=== PATIENT | female | born 1980 | race Asian ===

== ENCOUNTER 2017-02-20 00:35 | Inpatient (IN) | payer SELFPAY ==
[~2017-02-20] VITALS: Ht 160 cm; Wt 67.1 kg
[2017-02-20] MEDS ORDERED: LACTATED RINGERS 1,000 ML IV SCH (01:12)
[2017-02-20] MEDS ORDERED: PROMETHAZINE 25 MG/ML VIAL IVP PRN (01:15)
[2017-02-20] MEDS ORDERED: OXYTOCIN 20 UNITS/LR PREMIX 1,000 ML IV PRN (01:15)
[2017-02-20] MEDS ORDERED: NALBUPHINE HYDROCHLORIDE 10 MG/ML VIAL IVP PRN (01:15)
[2017-02-20] MEDS ORDERED: AMPICILLIN 2,000 MG in NACL 0.9% MINI-BAG PLUS 100 ML IV SCH (01:15)
[2017-02-20] MEDS ORDERED: OXYTOCIN 10 UNITS/ML VIAL IM SCH (01:15)
[2017-02-20] MEDS ORDERED: AMPICILLIN 2,000 MG VIAL ONE (01:20)
[2017-02-20 02:08] LABS: BASOPHILS % (AUTO) 0.8 % (0.0-2.0); EOSINOPHILS # (AUTO) 0.2 K/uL (0-0.4); EOSINOPHILS % (AUTO) 2.5 % (0.0-4.0); HEMATOCRIT 34.6 % (36-48); HEMOGLOBIN 11.3 g/dL (12.0-16.0); LYMPHOCYTES # (AUTO) 1.1 K/uL (2.5-16.5); LYMPHOCYTES % (AUTO) 18.3 % (20.5-51.1); MEAN CORPUSCULAR HEMOGLOBIN 31 pg (27-31); MEAN CORPUSCULAR HGB CONC 33 g/dL (33-37); MEAN CORPUSCULAR VOLUME 96 fL (80-94); MONOCYTES # (AUTO) 0.4 K/uL (0.8-1.0); MONOCYTES % (AUTO) 6.7 % (1.7-9.3); NEUTROPHILS # (AUTO) 4.5 K/uL (1.8-7.7); NEUTROPHILS % (AUTO) 71.7 % (42.2-75.2); PLATELET COUNT (AUTO) 119 K/uL (140-450); RED BLOOD CELL COUNT(AUTO) 3.61 MIL/uL (4.20-5.40); RED CELL DISTRIBUTION WIDTH 13.1 % (11.6-13.7); WHITE BLOOD COUNT (AUTO) 6.2 K/uL (4.8-10.8)
[2017-02-20 02:09] LABS: APPEARANCE,URINE CLEAR (CLEAR); BILIRUBIN,URINE NEGATIVE (NEGATIVE); BLOOD, URINE 3+ (NEGATIVE); COLOR,URINE YELLOW (YELLOW); LEUKOCYTE ESTERASE ,URINE 3+ (NEGATIVE); NITRITE, URINE NEGATIVE (NEGATIVE); PROTEIN,URINE NEGATIVE (NEGATIVE); UGLUCOSE NEGATIVE (NEGATIVE); UROBILINOGEN,URINE 0.2 EU/dL (0.2 - 1)
[2017-02-20 02:21] LABS: RBC,URINE 0-5 (RARE) /HPF (0-5)
[2017-02-20 02:23] LABS: BACTERIA,URINE 1+ /HPF (None Seen); WBC,URINE 20-60 /HPF (0-5); YEAST,URINE Rare /HPF (None Seen)
[2017-02-20 02:28] LABS: HIV RAPID SCREEN NON-REACTIVE (NON REACTIV)
[2017-02-20 02:35] VITALS: BP 101/57
[2017-02-20] MEDS ORDERED: ROPIVACAINE 0.2%/NS PREMIX 250 ML EPI ONE (02:56)
[2017-02-20] MEDS ORDERED: AMPICILLIN 1,000 MG in NACL 0.9% MINI-BAG PLUS 50 ML IV SCH (05:00)
[2017-02-20] MEDS ORDERED: AMPICILLIN 1,000 MG VIAL ONE (05:34)
[2017-02-20] MEDS ORDERED: OXYTOCIN 20 UNITS/LR PREMIX 1,000 ML IV ONE (06:26)
[2017-02-20] MEDS ORDERED: OXYTOCIN 10 UNITS/ML VIAL ONE (09:11)
[2017-02-20] MEDS ORDERED: oxyCODONE/APAP 5/325 MG 1 TAB TAB PO PRN (14:40)
[2017-02-20] MEDS ORDERED: IBUPROFEN 800 MG TAB PO PRN (14:40)
[2017-02-20] MEDS ORDERED: TEMAZEPAM 15 MG CAP PO PRN (14:40)
[2017-02-20] MEDS ORDERED: HYDROcodone/APAP 5/325 MG 1 TAB TAB PO PRN (14:40)
[2017-02-20] MEDS ORDERED: BENZOCAINE/MENTHOL 20%-0.5% 60 GM CAN TP PRN (14:40)
[2017-02-20] MEDS ORDERED: WITCH HAZEL 40 PAD PACKAGE TP PRN (14:40)
[2017-02-20] MEDS ORDERED: METHYLERGONOVINE 0.2 MG/ML AMP IM PRN (14:40)
[2017-02-20] MEDS ORDERED: OXYTOCIN 10 UNITS/ML VIAL IM PRN (14:40)
[2017-02-20] MEDS ORDERED: oxyCODONE/APAP 5/325 MG 1 TAB TAB ONE ×2 (14:56→14:57)
[2017-02-20 19:16] LABS: RAPID PLASMA REAGIN NON-REACTIVE (Non Reactiv)
[2017-02-20] MEDS ORDERED: DOCUSATE SOD/SENNA 50/8.6 MG 1 TAB PO SCH (21:00)
[2017-02-21 05:51] LABS: HEMATOCRIT 26.8 % (36-48)
--- NOTE | 2017-02-21 10:10 | NUR ---
PATIENT HAS BEEN SCREENED AND CATEGORIZED LOW NUTRITION RISK. PATIENT WILL BE SEEN WITHIN 7 DAYS OF ADMISSION. 02/26/[address]
[2017-02-22] MEDS ORDERED: IBUP-2213 PO (12:15)
== END 2017-02-22 16:15 | disposition home or self-care (01) | DRG 774 ==
LOC: MLD 00:35 → MFCC 15:53
PROVIDERS: ADMIT Obstetrics & Gynecology; ATTEND Obstetrics & Gynecology
PROC: 10E0XZZ Delivery of Products of Conception, External Approach (ICD-10-PCS; principal; 2017-02-20)
PROC: 0KQM0ZZ Repair Perineum Muscle, Open Approach (ICD-10-PCS; 2017-02-20)
PROC: 10907ZC Drainage of Amniotic Fluid, Therapeutic from Products of Conception, Via Natural or Artificial Opening (ICD-10-PCS; 2017-02-20)
PROC: 00HU33Z Insertion of Infusion Device into Spinal Canal, Percutaneous Approach (ICD-10-PCS; 2017-02-20)
PROC: 3E0R3CZ (ICD-10-PCS; 2017-02-20)
DX: O76 Abnormality in fetal heart rate and rhythm complicating labor and delivery (principal); O45.93 Premature separation of placenta, unspecified, third trimester; Z37.0 Single live birth; Z3A.39 39 weeks gestation of pregnancy; O69.89X0 Labor and delivery complicated by other cord complications, not applicable or unspecified; O99.824 Streptococcus B carrier state complicating childbirth; O70.1 Second degree perineal laceration during delivery
CPT/HCPCS: 36415; 81001; 85018; 85025; 86592; 86886; 86900; 86901; 87086; J0290; J2590; J2795; J7120